=== PATIENT | female | born 1945 | race Caucasian/White ===

== ENCOUNTER → 2018-06-05 | Outpatient (REF) | payer MEDICARE ==
[~2018-06-05] MED LIST: ALLEGRA-D 1212 HOUR PO; AMLODIPINE5 MG PO; AMOX/K CLAV500 MG PO; ANTIVERT PO; CALCIUM 600+D PO; CAPZASIN HP EX; CEFTIN250 MG PO; CLARITIN-D1 TA2 PO; DEMADEX5 MG PO; DICLOFENAC SODI75 MG PO; EQL IBUPROFEN200 MG PO; FISH OIL1200 M1 PO; FLEXERIL PO; FLONASE NASAL50 MCG; GRALISE300 MG PO; HYDROCHLORO25 MG/TAB PO; HYDROCHLOROT25 MG PO; LAMISIL250 MG PO; LIPITOR10 M1 PO; LIPITOR10 MG PO; LOSARTAN POT50 MG PO; MAVIK1 MG PO; MAXZIDE-2537.5 MG/TA PO; MEDDOSEPAK PO; NEURONTIN300 MG PO; PRAVASTATIN SOD20 MG PO; ROBITUSSIN AC10 ML PO; SYNTHROID112 MCG PO; TYLOPHEN500 MG PO; VALTREX1 GM PO; VITAMIN B-12500 MC2 PO; ZYRTEC10 MG PO
[2018-06-05 13:30] LABS: URINE BILIRUBIN - DIPSTICK NEGATIVE (NEGATIVE); URINE BLOOD DIPSTICK NEGATIVE (NEGATIVE); URINE COLOR YELLOW; URINE GLUCOSE - DIPSTICK NEGATIVE (NEGATIVE); URINE KETONE NEGATIVE (NEGATIVE); URINE LEUK ESTERASE SMALL (NEGATIVE); URINE NITRITE - DIPSTICK NEGATIVE (Negative); URINE PROTEIN - DIPSTICK NEGATIVE (NEG-TRACE); URINE SPECIFIC GRAVITY 1.015; URINE UROBILINOGEN - DIPSTICK 0.2 E.U./dL (0.2)
[2018-06-05 13:46] LABS: URINE SQUAMOUS EPITHELIAL CELL FEW EPI/hpf (0-FEW)
[2018-06-05 13:47] LABS: URINE BACTERIA FEW hpf
== END | disposition home or self-care (01) ==
LOC: LABSPEC 13:13
PROVIDERS: ATTEND Internal Medicine Geriatric Medicine
DX: R30.0 Dysuria (principal); B96.89 Other specified bacterial agents as the cause of diseases classified elsewhere

== ENCOUNTER → 2018-06-16 | Outpatient (REF) | payer MEDICARE ==
[2018-06-16 09:19] LABS: ALBUMIN 4.2 g/dL (3.2-5.0); ALKALINE PHOSPHATASE 74 u/l (38-126); ANION GAP 17 (6-22 (CALC)); BILIRUBIN, TOTAL 0.6 mg/dL (0.0-1.4); BUN 18 mg/dL (8-23); BUN/CREATININE RATIO 19 (12-20 (CALC)); CALCULATED LDLCHOLESTEROL 73 mg/dL (62-129 (CALC)); CARBON DIOXIDE 29 mmol/l (22-30); CHLORIDE 98 mmol/l (95-108); CHOLESTEROL HDL RATIO 2.6 (<4.4 (CALC)); CREATININE 0.9 mg/dL (0.5-1.0); GFR > 60 ML/MIN (>=60 (CALC)); GFR FOR AFR.AMER. > 60 ML/MIN (>=60 (CALC)); HDL CHOLESTEROL 57 mg/dL (>=40); POTASSIUM 4.8 mmol/l (3.5-5.1); SGOT/AST 57 u/l (9-36); SODIUM 140 mmol/l (137-146); TOTAL CHOLESTEROL 152 mg/dl (0-199); TOTAL PROTEIN 7.2 g/dL (6.3-8.2); TOTAL TRIGLYCERIDES 106 mg/dl (30-149); VLDL CHOLESTROL 21 mg/dl (0-48 (CALC))
[2018-06-16 09:41] LABS: TSH, 3RD GENERATION 0.55 uIU/mL (0.47 - 4.68)
[2018-06-16 10:26] LABS: HEMATOCRIT 34.8 % (37.0-47.0); HEMOGLOBIN 11.6 g/dl (12.0-16.0); IMMATURE GRANULOCYTES 0.2 % (0.0-5.0); MEAN CELL VOLUME 98.3 fL CALC (80.0-100.0); MEAN CORPUSCULAR HGB 32.8 pG CALC (26.0-32.0); MEAN CORPUSCULAR HGB CONC 33.3 g/L CALC (32.0-36.0); NEUT# 2.45 thou/uL (2.00-7.15); RED BLOOD COUNT 3.54 mill/uL (4.20-5.60); RED CELL DISTRI WIDTH 11.9 % (11.5-15.5)
== END | disposition home or self-care (01) ==
LOC: LAB 07:22
PROVIDERS: ATTEND Nurse Practitioner Family
DX: E03.9 Hypothyroidism, unspecified (principal); I10 Essential (primary) hypertension; E78.2 Mixed hyperlipidemia; E11.9 Type 2 diabetes mellitus without complications

== ENCOUNTER 2019-01-30 10:18 | Observation (INO) | payer MEDICARE ==
[~2019-01-30] VITALS: Ht 152.4 cm; Wt 64.1 kg
--- NOTE | 2019-01-30 10:20 | NUR ---
PT BROUGHT BACK TO ER ROOM 8
[2019-01-30 11:09] LABS: HEMATOCRIT 31.9 % (37.0-47.0); HEMOGLOBIN 10.7 g/dl (12.0-16.0); IMMATURE GRANULOCYTES 0.4 % (0.0-5.0); MEAN CELL VOLUME 92.5 fL CALC (80.0-100.0); MEAN CORPUSCULAR HGB CONC 33.5 g/L CALC (32.0-36.0); NEUT# 9.34 thou/uL (2.00-7.15); RED BLOOD COUNT 3.45 mill/uL (4.20-5.60)
[2019-01-30 11:14] LABS: URINE BILIRUBIN - DIPSTICK NEGATIVE (NEGATIVE); URINE BLOOD DIPSTICK NEGATIVE (NEGATIVE); URINE COLOR YELLOW; URINE GLUCOSE - DIPSTICK NEGATIVE (NEGATIVE); URINE KETONE NEGATIVE (NEGATIVE); URINE LEUK ESTERASE NEGATIVE (NEGATIVE); URINE NITRITE - DIPSTICK NEGATIVE (Negative); URINE PROTEIN - DIPSTICK NEGATIVE (NEG-TRACE); URINE SPECIFIC GRAVITY <=1.005; URINE UROBILINOGEN - DIPSTICK 0.2 E.U./dL (0.2)
--- NOTE | 2019-01-30 11:19 | NUR ---
PT RESTING ON STRETCHER; SPOUOSE AT BEDSIDE; VSS; IVF INFUSING INTO RAC; IV SITE APPEARS HEALTHY
[2019-01-30] MEDS ORDERED: SYNTHROID112 MCG PO (11:21)
[2019-01-30] MEDS ORDERED: EZALLOR SPRINKL10 MG PO (11:21)
[2019-01-30] MEDS ORDERED: METFORMIN500 M1 PO (11:21)
[2019-01-30 11:24] LABS: ALBUMIN 4.4 g/dL (3.2-5.0); ALKALINE PHOSPHATASE 84 u/l (38-126); ANION GAP 17 (6-22 (CALC)); BILIRUBIN, TOTAL 0.5 mg/dL (0.0-1.4); BUN 21 mg/dL (8-23); BUN/CREATININE RATIO 18 (12-20 (CALC)); CARBON DIOXIDE 25 mmol/l (22-30); CHLORIDE 98 mmol/l (95-108); CREATININE 1.1 mg/dL (0.5-1.0); GFR 48 ML/MIN (>=60 (CALC)); GFR FOR AFR.AMER. 58 ML/MIN (>=60 (CALC)); LIPASE 36 u/l (23-300); POTASSIUM 4.7 mmol/l (3.5-5.1); SGOT/AST 26 u/l (9-36); SODIUM 135 mmol/l (137-146); TOTAL PROTEIN 7.8 g/dL (6.3-8.2)
--- NOTE | 2019-01-30 12:16 | NUR ---
PT RESTING ON STRETCHER; IVF INFUSING PER ORDERS; VSS
--- NOTE | 2019-01-30 12:29 | NUR ---
ADMITTING DOCTOR SPEAKING WITH PT. ABOUT ADMISSION.
--- NOTE | 2019-01-30 12:44 | NUR ---
BLADDER SCAN DONE AFTER PT URINATED. 36 ML NOTED
--- NOTE | 2019-01-30 12:53 | NUR ---
REPORT GIVEN TO PATRICIA FOR CONTINUATION OF CARE.
--- NOTE | 2019-01-30 12:58 | NUR ---
FREQUENT UPS AND DOWNS TO USE RESTROOM, STATES URINATES FREQUENTLY AND SMALL AMOUNTS.
--- NOTE | 2019-01-30 13:00 | NUR ---
PT ARRIVES TO ROOM VIA WHEELCHAIR FROM ER, ACCOMPANIED BY MICHELLE. PT IS ALERT AND ORIENTED X 3. BOLUS IVF CONTINUES. PT ABLE TO ANSWER ADMISSION QUESTIONS WITHOUT DIFFICULTY.
--- NOTE | 2019-01-30 13:08 | NUR ---
2ND LACTIC DRAWN PER PROTOCOL,
[2019-01-30 13:19] VITALS: BP 153/80
--- NOTE | 2019-01-30 13:19 | NUR ---
PT TAKEN TO FLOOR PER W/C, AND TELEMETRY
[2019-01-30 14:47] VITALS: BP 133/74
--- NOTE | 2019-01-30 16:18 | NUR ---
PT AMBULATORY TO BR IN ROOM WITH STEADY GAIT, NO COMPLAINTS OR DISTRESS NOTED. FAMILY AT BEDSIDE.
[2019-01-30 19:45] VITALS: BP 166/80
--- NOTE | 2019-01-30 20:00 | NUR ---
PT AWAKE RESTING IN BED. ALERT AND ORIENTED X3. PT IS AFEBRILE. SKIN WARM AND DRY. RESP EVEN AND UNLABORED. LUNGS CLEAR BILAT. ABD SOFT AND NONDISTENDED WITH BOWEL SOUNDS PRESENT. NO LOWER EXT EDEMA NOTED. PEDAL PULSES PALPATED BILAT. IV SITE PATENT IN RT A.C. NO REDNESS OR SWELLING AT SITE. IVF NSS AT 100CC/HR. PT OFFERS NO COMPLAINTS AT THIS TIME. TELE INTACT. WAITING ON THRID LACTIC JUST DRAWN. FREQUENT ROUNDS MADE. CALL [facility] WITHIN REACH.
--- NOTE | 2019-01-30 22:27 | NUR ---
LACTIC 1.6. PT REMAINS AFEBRILE. RESTING IN BED WATCHING T.V. RESP EVEN AND UNLABORED. IVF NSS AT 100CC/HR. WILL CONTINUE TO CLOSELY MONITOR. FREQUENT ROUNDS MADE. CALL [facility] WITHIN REACH.
[2019-01-31] VITALS: BP 119/56
--- NOTE | 2019-01-31 00:26 | NUR ---
PT AWAKE RESTING IN BED. RESP EVEN AND UNLABORED. NO DISTRESS NOTED. IV SITE PATENT. TELE INTACT. B/P 119/56. AFEBRILE. OFFERS NO COMPLAINTS. FREQUENT ROUNDS MADE. CALL [facility] WITHIN REACH.
--- NOTE | 2019-01-31 04:08 | NUR ---
RESTING IN BED WITH EYES CLOSED. ASSESSMENT UNCHANGED. RESP EVEN AND UNLABORED. IV SITE PATENT NSS AT 100CC/HR. TELE INTACT. FREQUENT ROUNDS MADE. CALL [facility] WITHIN REACH.
[2019-01-31 05:01] VITALS: BP 97/57
[2019-01-31 05:42] LABS: HEMATOCRIT 29.4 % (37.0-47.0); HEMOGLOBIN 9.5 g/dl (12.0-16.0); MEAN CELL VOLUME 95.5 fL CALC (80.0-100.0); MEAN CORPUSCULAR HGB 30.8 pG CALC (26.0-32.0); MEAN CORPUSCULAR HGB CONC 32.3 g/L CALC (32.0-36.0); RED BLOOD COUNT 3.08 mill/uL (4.20-5.60); RED CELL DISTRI WIDTH 12.2 % (11.5-15.5)
[2019-01-31 05:53] LABS: ANION GAP 11 (6-22 (CALC)); BUN 17 mg/dL (8-23); BUN/CREATININE RATIO 17 (12-20 (CALC)); CARBON DIOXIDE 23 mmol/l (22-30); CHLORIDE 108 mmol/l (95-108); GFR 54 ML/MIN (>=60 (CALC)); GFR FOR AFR.AMER. > 60 ML/MIN (>=60 (CALC)); POTASSIUM 4.6 mmol/l (3.5-5.1); SODIUM 137 mmol/l (137-146)
[2019-01-31 08:30] VITALS: BP 139/69
--- NOTE | 2019-01-31 08:30 | NUR ---
ASSESSMENT IS COMPLTED: IV SITE IS FREE FROM REDNESS OR EDEMA. HR IS REG,PULSES ARE STRONG X4, ABD IS SOFT WITH ACTIVE BS, BREATH SOUNDS ARE CLEAR, BILATERALLY. TELE MONITOR IN PLACE. CONTINUE TO OBSERVE AND MONITOR.
[2019-01-31 12:00] VITALS: BP 124/55
--- NOTE | 2019-01-31 12:00 | NUR ---
PT IS RELAXING IN BED WITH NO DISTRESS NOTED. IV SITE IS FREE FROM REDNESS OR EDEMA. TELE MONITOR ON PT.
--- NOTE | 2019-01-31 12:58 | NUR ---
BLADDER SCAN PT AND HAD 42ML RESIDUAL.
--- NOTE | 2019-01-31 13:59 | NUR ---
IN TO VISIT WITH PT AND FAMILY.
--- NOTE | 2019-01-31 16:00 | NUR ---
PT IS RELAXING IN BED WITH NO DISTRESS NOTED. C/O COLD ROOM. FAMILY IN THE ROOM. WAITING ON DC ORDERS.
--- NOTE | 2019-01-31 17:15 | NUR ---
Discharge instructions given. Patient verbalizes understanding of same. Discharged in stable condition via Wheelchair to Home with family. All belongings sent with pt.
--- NOTE | 2019-01-31 17:18 | NUR ---
TRANSPORTED PT TO THE CAR WITH FAMILY AND ALL BELONGINGS. IV SITE DISCONTINUED CATHETER INTACT. NO REDNESS OR EDEMA. CONTINUE TO OSBERVE AND MONITOR.
== END 2019-01-31 16:53 | disposition home or self-care (01) ==
LOC: ED 10:18 → ED-I 11:50 → ED 12:04 → MS2 12:05
PROVIDERS: ADMIT Internal Medicine; ATTEND Internal Medicine
DX: E87.2 Acidosis (principal); N17.9 Acute kidney failure, unspecified; E86.0 Dehydration; R19.7 Diarrhea, unspecified; R39.15 Urgency of urination; R35.0 Frequency of micturition; R11.2 Nausea with vomiting, unspecified; I10 Essential (primary) hypertension; E11.9 Type 2 diabetes mellitus without complications; E03.9 Hypothyroidism, unspecified; R21 Rash and other nonspecific skin eruption; Z79.84 Long term (current) use of oral hypoglycemic drugs; Z87.440 Personal history of urinary (tract) infections; Z90.710 Acquired absence of both cervix and uterus

== ENCOUNTER 2020-06-13 21:13 | Emergency (ER) | payer MEDICARE ==
[~2020-06-13] VITALS: Ht 152.4 cm; Wt 66.0 kg
[~2020-06-13 21:13] MED LIST changes: +EZALLOR SPRINKL10 MG PO; +METFORMIN500 M1 PO
[2020-06-13 22:02] LABS: HEMATOCRIT 33.9 % (37.0-47.0); HEMOGLOBIN 11.5 g/dl (12.0-16.0); IMMATURE GRANULOCYTES 0.1 % (0.0-5.0); MEAN CELL VOLUME 92.9 fL CALC (80.0-100.0); MEAN CORPUSCULAR HGB 31.5 pG CALC (26.0-32.0); MEAN CORPUSCULAR HGB CONC 33.9 g/dL CAL (32.0-36.0); NEUT# 3.55 thou/uL (2.00-7.15); RED BLOOD COUNT 3.65 mill/uL (4.20-5.60)
[2020-06-13 22:19] LABS: ALBUMIN 4.8 g/dL (3.2-5.0); ALKALINE PHOSPHATASE 76 u/l (38-126); ANION GAP 15 (6-22 (CALC)); BILIRUBIN, TOTAL 0.6 mg/dL (0.0-1.4); BUN 15 mg/dL (8-23); BUN/CREATININE RATIO 20 (12-20 (CALC)); CARBON DIOXIDE 29 mmol/l (22-30); CHLORIDE 93 mmol/l (95-108); CREATININE 0.8 mg/dL (0.5-1.0); GFR > 60 ML/MIN (>=60 (CALC)); GFR FOR AFR.AMER. > 60 ML/MIN (>=60 (CALC)); SGOT/AST 31 u/l (9-36); SODIUM 133 mmol/l (137-146); TOTAL PROTEIN 8.2 g/dL (6.3-8.2)
[2020-06-13 22:20] LABS: POTASSIUM 3.9 mmol/l (3.5-5.1)
[2020-06-13 22:30] LABS: MYOGLOBIN 47 ng/mL (0 - 62)
[2020-06-13] MEDS ORDERED: HYDROCHLOROT25 MG PO (22:50)
[2020-06-13] MEDS ORDERED: METFORMIN500 M2 PO (22:51)
[2020-06-13] MEDS ORDERED: GLIPIZIDE ER10 M1 PO (22:51)
[2020-06-13 23:24] LABS: URINE BILIRUBIN - DIPSTICK NEGATIVE (NEGATIVE); URINE BLOOD DIPSTICK NEGATIVE (NEGATIVE); URINE COLOR YELLOW; URINE GLUCOSE - DIPSTICK NEGATIVE (NEGATIVE); URINE KETONE NEGATIVE (NEGATIVE); URINE LEUK ESTERASE NEGATIVE (NEGATIVE); URINE NITRITE - DIPSTICK NEGATIVE (Negative); URINE PROTEIN - DIPSTICK NEGATIVE (NEG-TRACE); URINE SPECIFIC GRAVITY 1.015; URINE UROBILINOGEN - DIPSTICK 0.2 E.U./dL (0.2)
[2020-06-13 23:30] VITALS: BP 158/80
== END 2020-06-13 23:30 | disposition home or self-care (01) ==
LOC: ED 21:13
PROVIDERS: Emergency Medicine
DX: I10 Essential (primary) hypertension (principal); T46.5X6A Underdosing of other antihypertensive drugs, initial encounter; Z91.128 Patient's intentional underdosing of medication regimen for other reason

== ENCOUNTER 2020-06-23 08:30 | Emergency (ER) | payer MEDICARE ==
[~2020-06-23] VITALS: Ht 152.4 cm; Wt 66.8 kg
[~2020-06-23 08:30] MED LIST changes: +GLIPIZIDE ER10 M1 PO; +METFORMIN500 M2 PO
[2020-06-23] MEDS ORDERED: ATENOLOL25 MG PO (08:55)
[2020-06-23 09:12] LABS: HEMATOCRIT 35.3 % (37.0-47.0); HEMOGLOBIN 11.8 g/dl (12.0-16.0); IMMATURE GRANULOCYTES 0.2 % (0.0-5.0); MEAN CELL VOLUME 93.1 fL CALC (80.0-100.0); MEAN CORPUSCULAR HGB 31.1 pG CALC (26.0-32.0); MEAN CORPUSCULAR HGB CONC 33.4 g/dL CAL (32.0-36.0); NEUT# 2.42 thou/uL (2.00-7.15); RED BLOOD COUNT 3.79 mill/uL (4.20-5.60); RED CELL DISTRI WIDTH 11.9 % (11.5-15.5)
[2020-06-23 09:33] LABS: ALBUMIN 4.4 g/dL (3.2-5.0); ALKALINE PHOSPHATASE 60 u/l (38-126); ANION GAP 12 (6-22 (CALC)); BILIRUBIN, TOTAL 0.7 mg/dL (0.0-1.4); BUN 14 mg/dL (8-23); BUN/CREATININE RATIO 17 (12-20 (CALC)); CARBON DIOXIDE 28 mmol/l (22-30); CHLORIDE 97 mmol/l (95-108); CREATININE 0.8 mg/dL (0.5-1.0); GFR > 60 ML/MIN (>=60 (CALC)); GFR FOR AFR.AMER. > 60 ML/MIN (>=60 (CALC)); POTASSIUM 3.9 mmol/l (3.5-5.1); SGOT/AST 31 u/l (9-36); SODIUM 134 mmol/l (137-146); TOTAL PROTEIN 7.6 g/dL (6.3-8.2)
[2020-06-23 09:48] LABS: MYOGLOBIN 67 ng/mL (0 - 62)
[2020-06-23 10:06] LABS: TSH, 3RD GENERATION 4.59 uIU/mL (0.47 - 4.68)
[2020-06-23] MEDS ORDERED: CLONIDINE0.1 MG PO ×2 (10:30→10:45)
[2020-06-23 10:36] VITALS: BP 160/69
== END 2020-06-23 10:50 | disposition home or self-care (01) ==
LOC: ED 08:30
PROVIDERS: Emergency Medicine
DX: I10 Essential (primary) hypertension (principal); E11.9 Type 2 diabetes mellitus without complications; E03.9 Hypothyroidism, unspecified; Z79.84 Long term (current) use of oral hypoglycemic drugs

== ENCOUNTER 2020-09-02 22:05 | Emergency (ER) | payer MEDICARE ==
[~2020-09-02] VITALS: Ht 152.4 cm; Wt 70.0 kg
[~2020-09-02 22:05] MED LIST changes: +ATENOLOL25 MG PO; +CLONIDINE0.1 MG PO
[2020-09-02 23:56] VITALS: BP 122/60
== END 2020-09-03 00:20 | disposition home or self-care (01) ==
LOC: ED 22:05
DX: I10 Essential (primary) hypertension (principal); E11.9 Type 2 diabetes mellitus without complications; E03.9 Hypothyroidism, unspecified; Z79.84 Long term (current) use of oral hypoglycemic drugs

== ENCOUNTER 2020-09-06 17:39 | Emergency (ER) | payer MEDICARE ==
[~2020-09-06] VITALS: Ht 152.4 cm; Wt 55.0 kg
[2020-09-06] MEDS ORDERED: MECLIZINE25 MG PO (18:19)
[2020-09-06] MEDS ORDERED: NIFEDIPINE60 MG PO (18:20)
[2020-09-06] MEDS ORDERED: CHLORTHALIDONE25 MG PO (18:21)
[2020-09-06 18:31] LABS: HEMOGLOBIN 12.8 g/dl (12.0-16.0); IMMATURE GRANULOCYTES 0.2 % (0.0-5.0); MEAN CELL VOLUME 91.8 fL CALC (80.0-100.0); MEAN CORPUSCULAR HGB 30.9 pG CALC (26.0-32.0); MEAN CORPUSCULAR HGB CONC 33.7 g/dL CAL (32.0-36.0); NEUT# 4.64 thou/uL (2.00-7.15); RED BLOOD COUNT 4.14 mill/uL (4.20-5.60); RED CELL DISTRI WIDTH 11.6 % (11.5-15.5)
[2020-09-06 18:49] LABS: ALBUMIN 4.8 g/dL (3.2-5.0); ALKALINE PHOSPHATASE 86 u/l (38-126); ANION GAP 17 (6-22 (CALC)); BILIRUBIN, TOTAL 0.7 mg/dL (0.0-1.4); BUN 19 mg/dL (8-23); BUN/CREATININE RATIO 20 (12-20 (CALC)); CARBON DIOXIDE 25 mmol/l (22-30); CHLORIDE 91 mmol/l (95-108); CREATININE 0.9 mg/dL (0.5-1.0); GFR > 60 ML/MIN (>=60 (CALC)); GFR FOR AFR.AMER. > 60 ML/MIN (>=60 (CALC)); LIPASE 116 u/l (23-300); SGOT/AST 33 u/l (9-36); SODIUM 129 mmol/l (137-146)
[2020-09-06 18:52] LABS: ACT PARTIAL THROMBO TIME 23.9 SECONDS (20.0-32.5); INTERNATIONAL NORMALIZED RATIO 1.1 RATIO (0.7-1.3); PROTHROMBIN TIME 10.7 SECONDS (9.0-12.5)
[2020-09-06 18:57] LABS: D-DIMER 0.4 mg/L (0.19-0.60)
[2020-09-06 19:20] LABS: TSH, 3RD GENERATION 2.14 uIU/mL (0.47 - 4.68)
[2020-09-06 19:30] VITALS: BP 116/56
[2020-09-06 20:21] LABS: URINE BILIRUBIN - DIPSTICK NEGATIVE (NEGATIVE); URINE BLOOD DIPSTICK NEGATIVE (NEGATIVE); URINE COLOR YELLOW; URINE GLUCOSE - DIPSTICK NEGATIVE (NEGATIVE); URINE KETONE NEGATIVE (NEGATIVE); URINE LEUK ESTERASE NEGATIVE (NEGATIVE); URINE PROTEIN - DIPSTICK NEGATIVE (NEG-TRACE); URINE UROBILINOGEN - DIPSTICK 0.2 E.U./dL (0.2)
[2020-09-06 20:25] LABS: URINE NITRITE - DIPSTICK NEGATIVE (Negative)
== END 2020-09-06 20:08 | disposition home or self-care (01) ==
LOC: ED 17:39
PROVIDERS: Emergency Medicine
DX: I10 Essential (primary) hypertension (principal); F41.9 Anxiety disorder, unspecified; E03.9 Hypothyroidism, unspecified; E11.9 Type 2 diabetes mellitus without complications; Z79.84 Long term (current) use of oral hypoglycemic drugs
CPT/HCPCS: J2060

== ENCOUNTER 2024-06-05 22:26 | Emergency (ER) | payer MEDICARE ==
[~2024-06-05] VITALS: Ht 152.4 cm; Wt 62.7 kg
[~2024-06-05 22:26] MED LIST changes: +CHLORTHALIDONE25 MG PO; +MECLIZINE25 MG PO; +NIFEDIPINE60 MG PO
[2024-06-05] MEDS ORDERED: SODIUM CHLORIDE 0.9% 1,000 ML IV ONE (22:45)
[2024-06-05 23:06] VITALS: BP 125/52
[2024-06-05 23:06] LABS: BASO% 0.5 % (0-3); EOS% 0.7 % (0-8); HEMATOCRIT 33.5 % (37.0-47.0); HEMOGLOBIN 10.8 g/dl (12.0-16.0); IMMATURE GRANULOCYTES 0.2 % (0.0-5.0); LYMPH% 20.3 % (15-41); MEAN CELL VOLUME 96.3 fL CALC (80.0-100.0); MEAN CORPUSCULAR HGB CONC 32.2 g/dL CAL (32.0-36.0); MONO% 18.3 % (2-13); NEUT# 3.33 thou/uL (2.00-7.15); RED BLOOD COUNT 3.48 mill/uL (4.20-5.60); RED CELL DISTRI WIDTH 12.5 % (11.5-15.5)
[2024-06-05 23:15] VITALS: BP 99/75
[2024-06-05 23:23] LABS: ALBUMIN 4.1 g/dL (3.2-5.0); ALKALINE PHOSPHATASE 52 u/l (38-126); ANION GAP 13 (6-22 (CALC)); BILIRUBIN, TOTAL 0.4 mg/dL (0.02-1.3); BUN 20 mg/dL (8-23); BUN/CREATININE RATIO 18 (12-20 (CALC)); CARBON DIOXIDE 25 mmol/l (22-30); CHLORIDE 98 mmol/l (95-108); CREATININE 1.1 mg/dL (0.5-1.0); ESTIMATED GFR 50 ML/MIN (>=90 (CALC)); MAGNESIUM 1.3 mg/dL (1.6-2.3); POTASSIUM 4.1 mmol/l (3.5-5.1); SGOT/AST 44 u/l (9-36); TOTAL PROTEIN 6.7 g/dL (6.3-8.2)
[2024-06-05 23:27] LABS: SODIUM 132 mmol/l (137-146)
[2024-06-05 23:31] VITALS: BP 146/72
[2024-06-05 23:45] VITALS: BP 170/85
[2024-06-05] MEDS ORDERED: LACTATED RINGER'S 1,000 ML IV ONE (23:50)
[2024-06-05] MEDS ORDERED: OSELTAMIVIR PHOSPHATE 75 MG/TAB CAP PO ONE (23:50)
[2024-06-06] VITALS: BP 157/76
[2024-06-06 00:16] VITALS: BP 125/63
[2024-06-06 00:30] VITALS: BP 131/59
[2024-06-06 00:46] VITALS: BP 127/63
[2024-06-06 00:47] LABS: URINE BILIRUBIN - DIPSTICK Negative (NEGATIVE); URINE BLOOD DIPSTICK Negative (NEGATIVE); URINE COLOR Yellow; URINE GLUCOSE - DIPSTICK Negative (NEGATIVE); URINE KETONE Negative (NEGATIVE); URINE LEUK ESTERASE Negative (NEGATIVE); URINE NITRITE - DIPSTICK Negative (Negative); URINE PH 5.5 (4.5-8.0); URINE PROTEIN - DIPSTICK Negative (NEG-TRACE); URINE UROBILINOGEN - DIPSTICK 0.2 E.U./dL (0.2)
[2024-06-06 01:01] VITALS: BP 138/62
[2024-06-06] MEDS ORDERED: TAM75CAP PO (01:02)
[2024-06-06 01:20] VITALS: BP 138/62
== END 2024-06-06 01:24 | disposition home or self-care (01) ==
LOC: ED 22:26
PROVIDERS: Family Medicine
DX: J10.1 Influenza due to other identified influenza virus with other respiratory manifestations (principal); E86.0 Dehydration; I10 Essential (primary) hypertension; E11.9 Type 2 diabetes mellitus without complications; E03.9 Hypothyroidism, unspecified; Z79.84 Long term (current) use of oral hypoglycemic drugs; Z20.822 Contact with and (suspected) exposure to COVID-19